=== PATIENT | male | born 1990 | race Caucasian/White ===

== ENCOUNTER 2022-03-06 15:25 | Emergency (ER) | payer OTHER ==
[2022-03-06 15:42] VITALS: RESP 18
[2022-03-06] MEDS ORDERED: KETOROLAC 15 MG/ML 1 ML VIAL IM STA (15:51)
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
[2022-03-06 17:36] VITALS: BP 124/81; PULSE 85; TEMP 98.3
== END 2022-03-06 17:36 | disposition home or self-care (01) ==
LOC: EC 15:25
DX: M79.18 Myalgia, other site (principal); F12.90 Cannabis use, unspecified, uncomplicated; Z88.0 Allergy status to penicillin; F17.200 Nicotine dependence, unspecified, uncomplicated; Y03.0XXA Assault by being hit or run over by motor vehicle, initial encounter
CPT/HCPCS: 72128; 72131; 99284; 96372; J1885

== ENCOUNTER 2024-01-20 22:44 | Emergency (ER) | payer SELFPAY ==
[2024-01-20 23:03] VITALS: TEMP 98.6
--- NOTE | 2024-01-20 23:57 | ED ---
ENT HPI - General Chief complaint: ENT Stated complaint: ENT Time Seen by Provider: 01/20/24 23:08 Source: patient, RN notes reviewed Mode of arrival: ambulatory Limitations: no limitations - History of Present Illness Initial comments: 33-year-old male presenting to the ER with complaint of cough x 3 days with sore throat, nasal congestion, and left ear pain. Denies fevers, vomiting, abdominal pain. Daughter has similar symptoms. He is tolerating orals well. Denies any medical conditions. - Related Data Previous Rx's Medication Instructions Recorded Ibuprofen [Motrin] 800 mg PO Q8H #30 tab 03/06/22 methocarbamoL [Robaxin-750] 750 mg PO TID #52 tab 03/06/22 Cetirizine HCl [Zyrtec] 10 mg PO DAILY 30 Days #30 tab 01/21/24 guaiFENesin 400 mg PO Q4H PRN #30 tablet 01/21/24 Allergies Allergy/AdvReac Type Severity Reaction Status Date / Time amoxicillin Allergy Rash/Hives Verified 01/20/24 23:03 Review of Systems ROS Statement: Those systems with pertinent positive or pertinent negative responses have been documented in the HPI. ROS Other: All systems not noted in ROS Statement are negative. Past Medical History Past Medical History: No Reported History History of Any Multi-Drug Resistant Organisms: None Reported Past Surgical History: Hernia Repair Past Psychological History: No Psychological Hx Reported Smoking Status: Former smoker Past Alcohol Use History: Occasional Past Drug Use History: Marijuana General Exam Limitations: no limitations General appearance: alert, in no apparent distress Head exam: Present: atraumatic, normocephalic, normal inspection Eye exam: Present: normal appearance, PERRL, EOMI. Absent: scleral icterus, conjunctival injection, periorbital swelling ENT exam: Present: normal exam, normal oropharynx, mucous membranes moist, TM's normal bilaterally (Fluid behind TMs bilaterally, no erythema) Neck exam: Present: normal inspection. Absent: tenderness, meningismus, lymphadenopathy Respiratory exam: Present: normal lung sounds bilaterally. Absent: respiratory distress, wheezes, rales, rhonchi, stridor Cardiovascular Exam: Present: regular rate, normal rhythm, normal heart sounds. Absent: systolic murmur, diastolic murmur, rubs, gallop, clicks Neurological exam: Present: alert, oriented X3 Psychiatric exam: Present: normal affect, normal mood Skin exam: Present: warm, dry, intact, normal color. Absent: rash Course Vital Signs 01/20/24 01/20/24 01/21/24 22:59 23:55 01:11 Temperature 98.6 F Pulse Rate 74 82 Respiratory 18 18 16 Rate Blood Pressure 144/88 127/82 O2 Sat by Pulse 98 100 Oximetry Medical Decision Making - Medical Decision Making Was pt. sent in by a medical professional or institution (, [facility], RENTAL SALES AGENT, urgent care, hospital, or skilled nursing...) When possible be specific @ -No Did you speak to anyone other than the patient for history (EMS, parent, family, police, friend...)? What history was obtained from this source @ -No Did you review nursing and triage notes (agree or disagree)? Why? @ -I reviewed and agree with nursing and triage notes Were old charts reviewed (outside hosp., previous admission, EMS record, old EKG, old radiological studies, urgent care reports/EKG's, skilled nursing records)? Report findings @ -No old charts were reviewed Differential Diagnosis (chest pain, altered mental status, abdominal pain women, abdominal pain men, vaginal bleeding, weakness, fever, dyspnea, syncope, headache, dizziness, GI bleed, back pain, seizure, CVA, palpatations, mental health, musculoskeletal)? @ -Viral URI, pneumonia, strep pharyngitis, COVID, influenza EKG interpreted by me (3pts min.). @ -None X-rays interpreted by me (1pt min.). @ -Chest x-ray reveals no acute process CT interpreted by me (1pt min.). @ -None done U/S interpreted by me (1pt. min.). @ -None done What testing was considered but not performed or refused? (CT, X-rays, U/S, labs)? Why? @ -None What meds were considered but not given or refused? Why? @ -None Did you discuss the management of the patient with other professionals (professionals i.e. LUCIE Kim, RENTAL SALES AGENT, lab, RT, psych nurse, manager social services, probate lawyer, teacher, antisubmarine weapons officer, nurse case manager)? Give summary @ -No Was smoking cessation discussed for >3mins.? @ -No Was critical care preformed (if so, how long)? @ -No Were there social determinants of health that impacted care today? How? (Homelessness, low income, unemployed, alcoholism, drug addiction, transport ation, low edu. Level, literacy, decrease access to med. care, [facility], rehab)? @ -No Was there de-escalation of care discussed even if they declined (Discuss DNR or withdrawal of care, Hospice)? DNR status @ -No What co-morbidities impacted this encounter? (DM, HTN, Smoking, COPD, CAD, Cancer, CVA, ARF, Chemo, Hep., AIDS, mental health diagnosis, sleep apnea, morbid obesity)? @ -None Was patient admitted / discharged? Hospital course, mention meds given and route, prescriptions, significant lab abnormalities, going to OR and other pertinent info. @ -Discharge. This is a 33-year-old male presenting with cough x 3 days with sore throat, nasal congestion, and otalgia. No red flag symptoms. Vital signs within acceptable limits. Heart and lungs clear to auscultation bilaterally. Cepheid and strep negative. Chest x-ray reveals no acute process. Discussed negative results with patient. Discussed diagnosis of viral upper respiratory infection. Supportive care discussed as well as return precautions, and patient is agreeable to plan. Case was discussed with my ED attending Dr. Go. Patient discharged in stable condition. Undiagnosed new problem with uncertain prognosis? @ -No Drug Therapy requiring intensive monitoring for toxicity (Heparin, Nitro, Insulin, Cardizem)? @ -No Were any procedures done? @ -No Diagnosis/symptom? @ -Viral upper respiratory infection Acute, or Chronic, or Acute on Chronic? @ -Acute Uncomplicated (without systemic symptoms) or Complicated (systemic symptoms)? @ -Uncomplicated Side effects of treatment? @ -No Exacerbation, Progression, or Severe Exacerbation? @ -No Poses a threat to life or bodily function? How? (Chest pain, [place], [place], pneumonia, PE, COPD, DKA, ARF, appy, cholecystitis, CVA, Diverticulitis, Homicidal, Suicidal, threat to staff... and all critical care pts) @ -No - Lab Data Lab Results 01/20/24 01/20/24 Range/Units 23:51 23:51 Influenza Type A (PCR) Not Detected (Not Detectd) Influenza Type B (PCR) Not Detected (Not Detectd) RSV (PCR) Not Detected (Not Detectd) SARS-CoV-2 (PCR) Not Detected (Not Detectd) Group A Strep (PCR) NOT DETECTED (Not Detectd) Disposition Clinical Impression: Viral upper respiratory infection Disposition: HOME SELF-CARE Condition: Stable Instructions (If sedation given, give patient instructions): Upper Respiratory Infection (ED) Additional Instructions: Take Zyrtec once daily for congestion/ear pain. Take Prescriptions: guaiFENesin 400 mg PO Q4H PRN #30 tablet PRN Reason: Cough Cetirizine HCl [Zyrtec] 10 mg PO DAILY 30 Days #30 tab Is patient prescribed a controlled substance at d/c from ED?: No Referrals: None,Stated [Primary Care Provider] - 1-2 days Time of Disposition: 01:07
--- NOTE | 2024-01-21 01:07 | XR ---
EXAM: XR Chest, 2 Views CLINICAL HISTORY: XR Reason: cough TECHNIQUE: Frontal and lateral views of the chest. COMPARISON: No relevant prior studies available. FINDINGS: Lungs: Unremarkable. No consolidation. Pleural space: Unremarkable. No pneumothorax. Heart: Unremarkable. No cardiomegaly. Mediastinum: Unremarkable. Normal mediastinal contour. Bones/joints: Mild degenerative changes in the lower thoracic spine. No acute fracture or subluxation is seen. IMPRESSION: No acute findings in the chest.
[2024-01-21 01:15] VITALS: BP 127/82; PULSE 82; RESP 16
== END 2024-01-21 01:11 | disposition home or self-care (01) ==
LOC: EC 22:44
DX: J06.9 Acute upper respiratory infection, unspecified (principal); B97.89 Other viral agents as the cause of diseases classified elsewhere; Z88.0 Allergy status to penicillin; Z87.891 Personal history of nicotine dependence
CPT/HCPCS: 71046; 87636; 87651; 99283